=== PATIENT | female | born 1935 | race Caucasian/White ===

== ENCOUNTER 2018-05-23 07:42 | Day surgery (SDC) | payer MEDICARE, OTHER ==
[~2018-05-23] VITALS: Ht 152.4 cm; Wt 72.4 kg
[2018-05-23] MEDS ORDERED: ZOCOR 20MG20 MG PO (08:13)
[2018-05-23] MEDS ORDERED: VITAMIN D 1001000 IU PO (08:14)
[2018-05-23] MEDS ORDERED: NORCO 325 MG-7.1 TAB PO (08:14)
[2018-05-23] MEDS ORDERED: HCTZ 25MG TAB25 MG PO (08:14)
[2018-05-23] MEDS ORDERED: CITRACAL + D CA1 TAB PO (08:15)
[2018-05-23] MEDS ORDERED: ASPIRIN 81M81 MG/TA2 PO (08:15)
[2018-05-23] MEDS ORDERED: DDAVP TAB0.2 MG PO (08:16)
[2018-05-23] MEDS ORDERED: TOFRANIL 25MG T25 MG PO (08:16)
[2018-05-23 08:19] VITALS: BP 144/70; BP 149/91; PULSE 101; PULSE 110; TEMP 97.8
[2018-05-23 12:02] VITALS: BP 137/88; PULSE 94; TEMP 98.1
[2018-05-23 12:17] VITALS: BP 117/61; PULSE 87
[2018-05-23 12:34] VITALS: BP 137/73; PULSE 89
[2018-05-23 12:47] VITALS: BP 154/63; PULSE 86
[2018-05-23 13:17] VITALS: BP 153/68; PULSE 86
== END 2018-05-23 14:05 | disposition home or self-care (01) ==
LOC: SDCO 07:42
DX: N39.41 Urge incontinence (principal); N95.2 Postmenopausal atrophic vaginitis; R73.9 Hyperglycemia, unspecified; E78.5 Hyperlipidemia, unspecified; I10 Essential (primary) hypertension; M19.90 Unspecified osteoarthritis, unspecified site; I73.9 Peripheral vascular disease, unspecified; G89.29 Other chronic pain; Z79.82 Long term (current) use of aspirin; Z88.8 Allergy status to other drugs, medicaments and biological substances; Z90.49 Acquired absence of other specified parts of digestive tract; Z87.891 Personal history of nicotine dependence; Z80.8 Family history of malignant neoplasm of other organs or systems; Z80.0 Family history of malignant neoplasm of digestive organs; Z82.3 Family history of stroke
CPT/HCPCS: C1767; C1778; C1787; C1894; J0690; J2704; J3010; J7120